=== PATIENT | male | born 1970 | race Caucasian/White ===

== ENCOUNTER 2016-11-25 13:53 | Emergency (ER) | payer BC ==
[~2016-11-25] VITALS: Ht 177.8 cm; Wt 107.5 kg
--- NOTE | ~2016-11-25 | EKG ---
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
[~2016-11-25 13:53] MED LIST: CYCLOBENZAPRINE5 MG PO; DELTASONE20 MG PO; HYDROCODONE-AP1 EAC6 PO; IBUPROFEN 600600 M1 PO; METHOCARBAMOL500 M2 PO; MOBIC7.5 MG PO; NAPROSYN500 MG PO
[2016-11-25 14:33] LABS: ABSOLUTE NEUTROPHILS 7.3 thou/uL (1.4-8.2); BASOPHILS 0.7 % (0.0-2.0); EOSINOPHILS 1.2 % (0.0-3.0); HEMATOCRIT 45.3 % (42.0-52.0); HEMOGLOBIN 15.2 gm/dL (14.0-18.0); LYMPHOCYTES 28.5 % (24.0-44.0); MANUAL DIFF NO; MCH 30.1 pg (26.0-34.0); MCHC 33.6 g/dL (28.0-37.0); MCV 89.6 fL (80.0-100.0); MONOCYTES 8.1 % (1.0-8.0); PLATELET COUNT 299 thou/uL (150-400); POLYS 61.5 % (36.0-66.0); RBC 5.05 mil/uL (4.50-6.00); WBC 11.8 thou/uL (4.0-11.0)
[2016-11-25 14:35] LABS: ANION GAP 9 mmol/L (7-16); BUN 10 mg/dL (7-18); CALCIUM 9.1 mg/dL (8.5-10.1); CHLORIDE 106 mmol/L (98-107); CO2 25 mmol/L (21-32); GLUCOSE 88 mg/dL (74-106); POTASSIUM 4.1 mmol/L (3.5-5.1); SODIUM 140 mmol/L (136-145)
[2016-11-25 14:44] LABS: TROPONIN-I < 0.04 ng/mL (<0.04-0.07)
[2016-11-25] MEDS ORDERED: NORCO 5-325 TA1 EACH PO (15:33)
[2016-11-25 16:00] VITALS: BP 128/75
== END 2016-11-25 15:33 | disposition home or self-care (01) ==
LOC: ER 13:53
PROVIDERS: Emergency Medicine
DX: M54.12 Radiculopathy, cervical region (principal); F10.99 Alcohol use, unspecified with unspecified alcohol-induced disorder

== ENCOUNTER → 2016-12-08 | Outpatient (CLI) | payer OTHER ==
[~2016-12-08] MED LIST changes: +NORCO 5-325 TA1 EACH PO
== END ==
LOC: CAT 07:54
DX: Z13.6 Encounter for screening for cardiovascular disorders (principal)